=== PATIENT | female | born 1990 | race Two or more races ===

== ENCOUNTER 2019-03-26 11:35 | Emergency (ER) | payer SELFPAY ==
[~2019-03-26] VITALS: Ht 149.9 cm; Wt 59.0 kg
[2019-03-26 12:01] VITALS: BP 112/71
[2019-03-26 12:40] LABS: Urine Bacteria FEW /hpf (None Seen); Urine Blood Negative /uL (Negative); Urine Mucus FEW (None Seen); Urine Specific Gravity 1.014 (1.001-1.035); Urine WBC 11 /hpf (0 - 5)
[2019-03-26] MEDS ORDERED: PHENAZOPYRIDINE HCL 100 MG TAB PO ONE (14:00)
[2019-03-26] MEDS ORDERED: cefTRIAXone SOD 1,000 MG VL IM ONE (14:00)
== END 2019-03-26 14:30 | disposition home or self-care (01) ==
LOC: ER 11:35
DX: O23.11 Infections of bladder in pregnancy, first trimester (principal); Z3A.01 Less than 8 weeks gestation of pregnancy; Z88.6 Allergy status to analgesic agent
CPT/HCPCS: 81001; 81025; 96372; 99283; J0696

== ENCOUNTER 2019-11-18 13:41 | Emergency (ER) | payer MEDICAID ==
[~2019-11-18] VITALS: Ht 149.9 cm; Wt 60.4 kg
[2019-11-18 13:51] VITALS: BP 124/85
== END 2019-11-18 15:11 | disposition home or self-care (01) ==
LOC: ER 13:41
DX: Z48.01 Encounter for change or removal of surgical wound dressing (principal); Z88.6 Allergy status to analgesic agent

== ENCOUNTER 2020-09-25 01:12 | Emergency (ER) | payer MEDICAID ==
[~2020-09-25] VITALS: Ht 149.9 cm; Wt 64.0 kg
[2020-09-25 01:29] VITALS: BP 120/72
[2020-09-25] MEDS ORDERED: ONDANSETRON ODT 4 MG TAB PO ONE (02:45)
== END 2020-09-25 03:30 | disposition home or self-care (01) ==
LOC: ER 01:18
DX: A08.4 Viral intestinal infection, unspecified (principal)
CPT/HCPCS: 99283; Q0162

== ENCOUNTER 2022-04-16 07:17 | Emergency (ER) | payer MEDICAID ==
[~2022-04-16] VITALS: Ht 149.9 cm; Wt 65.9 kg
[2022-04-16] MEDS ORDERED: ONDANSETRON ODT 4 MG TAB PO ONE (07:45)
[2022-04-16] MEDS ORDERED: ACETAMINOPHEN 500 MG TAB PO ONE (08:00)
[2022-04-16 08:12] LABS: Basophils # (auto) 0.1 10 ^3/uL (0-0.2); Basophils % (auto) 0.6 % (0.0-2.0); Eosinophils # (auto) 0.1 10 ^3/uL (0-0.8); Eosinophils % (auto) 0.8 % (0.0-7.0); Hematocrit 39.6 % (36.0-46.0); Hemoglobin 13.4 g/dL (12.2-16.2); Lymphocytes # (auto) 2.3 10 ^3/uL (0.4-5.4); Lymphocytes % (auto) 22.3 % (10.0-50.0); Mean Corpuscular Hemoglobin 28.3 pg (28.0-32.0); Mean Corpuscular Hgb Conc. 33.9 g/dL (32.0-36.0); Mean Corpuscular Volume 83.7 fL (80.0-100.0); Monocytes # (auto) 0.3 10 ^3/uL (0-1.3); Monocytes % (auto) 3.3 % (0.0-12.0); Neutrophils # (auto) 7.6 10 ^3/uL (1.6-8.6); Red Blood Cells 4.74 10^6/uL (4.0-5.20); Red Cell Distribution Width 14.7 % (11.8-14.3); White Blood Cell 10.4 10^3/uL (4.4-10.8)
[2022-04-16 08:17] LABS: Urine Bacteria FEW /hpf (None Seen); Urine Blood Negative /uL (Negative); Urine Specific Gravity 1.003 (1.001-1.035); Urine WBC 43 /hpf (0 - 5)
[2022-04-16 09:14] LABS: Albumin 3.8 g/dL (3.4-5.0); Calcium 10.1 mg/dL (8.5-10.1); Potassium 4.6 mmol/L (3.5-5.1)
[2022-04-16 09:19] LABS: BUN/Creatinine Ratio 11.3; Bilirubin, Total 0.3 mg/dL (0.2-1.0); Total Protein 8.2 g/dL (6.4-8.2)
[2022-04-16] MEDS ORDERED: CEPH-510 PO (10:12)
[2022-04-16 10:27] VITALS: BP 119/71
== END 2022-04-16 10:15 | disposition home or self-care (01) ==
LOC: ER 07:17
DX: N39.0 Urinary tract infection, site not specified (principal); Z32.02 Encounter for pregnancy test, result negative; Z88.6 Allergy status to analgesic agent
CPT/HCPCS: 36415; 74176; 80053; 81001; 81025; 83690; 85025; 87086; 99284; Q0162